=== PATIENT | male | born 1950 | race Caucasian/White ===

== ENCOUNTER → 2017-08-24 | Outpatient (CLI) | payer MEDICARE ==
[~2017-08-24] MED LIST: ASPI81TA23 PO; ATOR40TA16 PO; CALC1CAP PO; FURO1TAB60 PO; HYDR-3799 PO; INSU100V SQ; LOSA25TA PO; METO25TA3 PO; PLAV75TA29 PO
[2017-08-24 12:32] LABS: AUTOMATED NEUTROPHIL # 4.9 TH/MM3 (1.8-7.7); BASOPHIL % 0.7 % (0.0-2.0); EOSINOPHIL # 0.3 TH/MM3 (0-0.4); EOSINOPHIL % 4.7 % (0.0-4.0); HEMATOCRIT 34.2 % (39.0-51.0); HEMOGLOBIN 11.1 GM/DL (13.0-17.0); LYMPH % 16.6 % (9.0-44.0); LYMPHOCYTE # 1.2 TH/MM3 (1.0-4.8); MEAN CELL VOLUME 87.4 FL (80.0-100.0); MEAN CORPUSCULAR HEMOGLOBIN 28.5 PG (27.0-34.0); MEAN CORPUSCULAR HGB CONC 32.6 % (32.0-36.0); MEAN PLATELET VOLUME 8.6 FL (7.0-11.0); MONO % 11.1 % (0.0-8.0); MONOCYTE # 0.8 TH/MM3 (0-0.9); NEUT % 66.9 % (16.0-70.0); PLATELET COUNT 184 TH/MM3 (150-450); RED BLOOD COUNT 3.91 MIL/MM3 (4.50-5.90); RED CELL DISTRIBUTION WIDTH 15.4 % (11.6-17.2); WHITE BLOOD COUNT 7.3 TH/MM3 (4.0-11.0)
[2017-08-24 12:37] LABS: PROTHROMBIN TIME - PATIENT 10.4 SEC (9.8-11.6)
[2017-08-24 12:37] LABS: BILIRUBIN, URINE NEG (NEG); BLOOD, URINE NEG (NEG); GLUCOSE,URINE NEG (NEG); KETONE, URINE NEG (NEG); NITRITE,URINE NEG (NEG); SQUAMOUS EPITHELIAL CELL URINE 1 /hpf (0-5); URINE COLOR YELLOW (YELLW/STRAW); URINE LEUKOCYTE ESTERASE SMALL (NEG)
--- NOTE | 2017-08-24 12:40 | RADRPT ---
EXAM DATE/TIME: 08/24/2017 12:19 [place] COMPARISON: No previous studies available for comparison. INDICATIONS : Evaluate for pneumonia, pneumothorax and communicable diseases. Pre-op AV fistula MEDICAL HISTORY : Renal disease, end stage. SURGICAL HISTORY : CABG. ENCOUNTER: Initial ACUITY: 1 day PAIN SCORE: 0/10 LOCATION: chest FINDINGS: PA and lateral views of the chest demonstrates a linear atelectasis in the left perihilar area. Other salcedo, the lungs are clear and well-aerated. No pleural effusions or pulmonary edema. Heart size is wi thin normal limits. There is evidence of previous cardiothoracic surgery. There is a right central li ne in place. There is no pneumothorax. The bony structures are grossly intact. CONCLUSION: 1. Focal linear atelectasis in the left perihilar area. 2. Otherwise, lungs are grossly clear. Flaco Foy MD on August 24, 2017 at 12:38 Board Certified Radiologist. This report was verified electronically.
[2017-08-24 12:56] LABS: CALCIUM 8.9 MG/DL (8.5-10.1); CREATININE 4.31 MG/DL (0.60-1.30)
--- NOTE | 2017-08-25 16:13 | EKG ---
Date Performed: 08/24/2017 Time Performed: 11:30:43 PTAGE: 67 years EKG: SINUS BRADYCARDIA LEFT VENTRICULAR HYPERTROPHY AND ST-T CHANGE LATERAL ST/T ABNORMALITY CON BUILDING ENGINEER ISCHEMIA ABNORMAL ECG NO PREVIOUS TRACING DOCTOR: Margarito Smith Interpretating Date/Time 08/25/2017 16:11:38
== END ==
LOC: CPRE 10:46 → EDBD 10:46
PROVIDERS: ATTEND Surgery
DX: Z01.812 Encounter for preprocedural laboratory examination (principal); Z01.811 Encounter for preprocedural respiratory examination; Z01.810 Encounter for preprocedural cardiovascular examination; N18.6 End stage renal disease; R94.31 Abnormal electrocardiogram [ECG] [EKG]
CPT/HCPCS: 36415; 71046; 80048; 81001; 85025; 85610; 85730; 93005

== ENCOUNTER → 2017-08-31 | Day surgery (SDC) | payer MEDICARE ==
[~2017-08-31] VITALS: Ht 162.6 cm; Wt 71.4 kg
[~2017-08-31] MED LIST changes: +*LABETALOL HCL 100 MG/20 ML VIAL PERIprocedural Use ONLY ONE; +BUPIVACAINE HCL PF 0.5% 10 ML VIAL ONE; +CHLORHEXIDINE GLUCONATE 2 % 1 PACK (2 CLOTHS) TOPICAL PRN; +DO NOT ADM ANY ANTICOAGULANT DRUGS PRN; +GLYCOPYRROLATE 1 MG/5 ML SYRINGE IV PUSH ONE; +HEPARIN SODIUM - IV 10,000 UNITS/10 ML VIAL ONE; +HEPARIN-NS/PF INJ 500 ML ONE; +INSULIN HUMAN REGULAR 1,000 UNITS/10 ML VIAL SQ PRN; +LACTATED RINGER'S 1000 ML IV PRN; +LIDOCAINE HCL 1% PF 5 ML SYRINGE OTHER ONE; +METOPROLOL TARTRATE 25 MG TAB PO PRN; +MORPHINE SULFATE 4 MG/ML INJ IV PRN; +ONDANSETRON HCL 4 MG/2 ML VIAL IV PUSH ONE; +PHENYLEPH/NS 1000 MCG/10 ML SYR IV ONE; +POVIDONE IODINE 5% (ANTISEPSIS KIT) 4 APPLICATIONS EACH NARE PRN; +PROPOFOL 200 MG/20 ML AMP IV ONE; +PROTAMINE SULFATE 50 MG/5 ML VIAL ONE; +SODIUM CHLOR 0.9% 250 ML INJ 250 ML IV ONE; +SODIUM CHLORID 0.9% 500 ML IV PRN; +THROMBIN (TOPICAL) 20,000 UNIT SPRAY KIT ONE; +VANCOMYCIN HCL 1000 MG VIAL ONE; +ePHEDrine/NS 25 MG/5 ML SYRINGE IV ONE
--- NOTE | 2017-08-31 12:01 | PD.VS.PN ---
Pre-operative Note Pre-operative diagnosis: ESRD, need for HD access Planned procedure: 1. L BC AVF 2. Ligation of L RC AVF Interval History: pt has been feeling well - last HD was Sat and did well ready for surgery Labs: Laboratory Results Test 08/31/17 10:00 Potassium Level 4.9 MEQ/L (3.5-5.1) Blood: none needed Imaging: Ultrasounds reviewed Orders: NPO Vanc 1g IV OCTOR Post-operative destination: PACU Operative site marked: Yes Consent: Informed consent has been obtained from Jonah Johnston. I have explained the procedure in detail and discussed the risks, benefits, and potential complications. All questions have been answered. Patient contact information: Chemo [phone] Joaquín Noyola MD Aug 31, 2017 12:01
--- NOTE | 2017-08-31 14:05 | HHI.PR ---
cc: Joaquín Noyola MD; Magalys Baez MD Immediate Post Op Note Procedure Date: Aug 31, 2017 Pre Op Diagnosis: ESRD, need for HD access Post Op Diagnosis: ESRD, need for HD access Surgeon: Joaquín Noyola Non Ferrous Material Handler(s): Soniya Velasquez Procedure: 1. L BC AVF 2. Ligation of L radiocephalic AVF Findings: 1. 4mm vein and calcified artery 2. Successful ligation of AVF 3. + thrill in BC at conclusion 4. Strong Doppler signal in wrist Estimated blood loss: 30mL Anesthesia: General Drains: None Fluids: 250 IVF Patient to: PACU Patient Condition: Good Implant/Devices: SEE IMPLANT LOG (if applicable) Date/Time of Procedure: SEE SURGICAL CARE RECORD Joaquín Noyola MD Aug 31, 2017 14:05
[2017-08-31 15:59] VITALS: BP 121/60; PULSE 64; RESP 16; TEMP 97.1; O2SAT 98
--- NOTE | 2017-09-01 06:53 | MP ---
cc: Joaquín Noyola MD DATE OF OPERATION: 08/31/2017 PREOPERATIVE DIAGNOSIS: End-stage renal disease, need for dialysis access, failed Isabel upper extremity access. POSTOPERATIVE DIAGNOSIS: End-stage renal disease, need for dialysis access, failed Isabel upper extremity access. PROCEDURE PERFORMED: 1. Left brachiocephalic arteriovenous fistula. 2. Ligation of left radiocephalic. ATTENDING SURGEON: Joaquín Noyola MD SUPPORTABILITY ENGINEER SURGEON: Soniya Velasquez. ANESTHESIA: General. INDICATIONS: Mr. Johnston is a gentleman with end-stage renal disease who needs dialysis access. He had a previously placed left radiocephalic fistula that was not maturing and in my estimation will never mature and he was taken to the operating room for a new access creation and previous access ligation. DESCRIPTION OF THE PROCEDURE: Informed consent was obtained from the patient. He was taken to the operating room and placed supine on the operating room table. An appropriate time-out was taken to ensure the patient's identity, operative site and planned procedure. The administration of 1 gram of vancomycin was initiated prior to the skin incision and will be discontinued after single preoperative dose. Vancomycin was chosen because of the patient's end-stage renal disease. Everyone in the room agreed with the time-out and we proceeded. His left arm was prepped and draped. An incision was made along the antecubital and carried down through the subcutaneous tissue with electrocautery. The cephalic vein was identified and dissected free for several centimeters. It was marked for orientation, clamped with a right angle on the distal end, transected and the distal end was oversewn with 3-0 silk. The brachial artery was identified on the medial aspect of the incision, and dissected free for several centimeters. The patient was systemically heparinized with 3000 units of IV heparin. Proximal and distal control of the brachial artery was obtained with profunda clamps and a longitudinal arteriotomy was made with an 11 blade and extended with Alex scissors. The vein was spatulated and sewn end-to-side with a running 5-0 Prolene suture. At the completion, it was flushed and noted to be hemostatic. There was a nice thrill in the fistula. This was packed with Surgicel. An incision made over the radiocephalic fistula, carried down through the subcutaneous tissue with electrocautery. The outflow vein, which the cephalic vein, was encircled with a vessel loop and ligated with 3-0 silk ties. The wounds were infiltrated with Marcaine and closed with 2-0 Polysorb, 3-0 Polysorb and 4-0 Monocryl. The sponge and needle counts were correct at the end of the case. I was present, scrubbed, and performed the entire procedure. Joaquín Noyola MD RJF/MARY , 05:08 AM , 06:52 AM
== END | disposition home or self-care (01) ==
LOC: EDBD → HSDC 09:12 → EDUNIT# 10:30
PROVIDERS: ATTEND Surgery
DX: T82.590A Other mechanical complication of surgically created arteriovenous fistula, initial encounter (principal); I12.0 Hypertensive chronic kidney disease with stage 5 chronic kidney disease or end stage renal disease; N18.6 End stage renal disease; E11.22 Type 2 diabetes mellitus with diabetic chronic kidney disease; I63.50 Cerebral infarction due to unspecified occlusion or stenosis of unspecified cerebral artery; E78.5 Hyperlipidemia, unspecified; R06.02 Shortness of breath; M19.90 Unspecified osteoarthritis, unspecified site; M25.472 Effusion, left ankle; Z99.2 Dependence on renal dialysis
CPT/HCPCS: 01844; 36832; 37607; 82948; 84132; 86850; 86900; 86901; J1644; J2370; J2405; J2720; J3010; J3370; J7050